=== PATIENT | female | born 1995 | race Caucasian/White ===

== ENCOUNTER 2024-02-05 07:30 | Emergency (ER) | payer OTHER ==
[2024-02-05 07:40] VITALS: BP 118/72; PULSE 84; RESP 18; TEMP 98.4; BMI 33.6
[2024-02-05 08:58] LABS: PH,URINE 5.5 (5.0-8.0); URINE APPEARANCE CLEAR; URINE BILIRUBIN NEGATIVE (NEGATIVE); URINE COLOR YELLOW; URINE GLUCOSE (UA) NEGATIVE (NEGATIVE); URINE KETONE NEGATIVE (NEGATIVE); URINE LEUK ESTERASE NEGATIVE (NEGATIVE); URINE NITRITE NEGATIVE (NEGATIVE); URINE PROTEIN NEGATIVE (NEGATIVE); URINE UROBILINOGEN 0.2 mg/dL (0.2-1.0)
[2024-02-05] MEDS: ONDANSETRON *ODT* 4 MG TABLET SL ONE (09:53)
[2024-02-05] MEDS: FAMOTIDINE 20 MG TABLET PO ONE (09:53)
== END 2024-02-05 12:29 | disposition home or self-care (01) ==
LOC: JER 07:30
DX: R10.12 Left upper quadrant pain (principal); R10.13 Epigastric pain; R11.0 Nausea
CPT/HCPCS: 76700-TC; 81003; 84703; 87086; 87186; 99284-25; Q0162